=== PATIENT | male | born 1935 | race Caucasian/White ===

== ENCOUNTER → 2022-12-31 | Outpatient (CLI) | payer MEDICARE | END | disposition home or self-care (01) | LOC: WHH 13:15 | PROVIDERS: ATTEND Family Medicine | DX: E11.621 Type 2 diabetes mellitus with foot ulcer (principal); L97.522 Non-pressure chronic ulcer of other part of left foot with fat layer exposed; L03.116 Cellulitis of left lower limb; I10 Essential (primary) hypertension; E78.5 Hyperlipidemia, unspecified; Z87.891 Personal history of nicotine dependence | CPT/HCPCS: 11042; 87070; 87077 ×3; 87186 ×3; A6248; A4450; L3260 ==